=== PATIENT | female | born 1965 | race Caucasian/White ===

== ENCOUNTER → 2018-09-10 | Day surgery (SDC) | payer OTHER ==
[~2018-09-10] MED LIST: ACIDOPHILUS1 EAC1 PO; ACTOS PO; ASPIR 8181 MG PO; ATORVASTATIN CA20 MG PO; FENTANYL CITRATE/PF 100MCG/2 ML INJ ONE; GLUCAGON FOR INJ 1 MG VIAL ONE; INSULIN REGULAR, HUMAN 100 UNIT/1 ML 3ML VIAL ONE; KETAMINE HCL INJ 50 MG/ML 10 ML VIAL ONE; METFORMIN HCL500 MG PO; METOPROLOL TART25 MG PO; MIDAZOLAM HCL 5MG/ML 2ML VIAL ONE; PROPOFOL IV EMULSION 10 MG/ML 50 ML VIAL ONE; Z.0.LISINOPRIL10 MG PO
[2018-09-10 10:48] LABS: WBC,FECAL (FECAL LACTOFERRIN) NEGATIVE (NEGATIVE)
[2018-09-10 11:00] VITALS: BP 107/53
[2018-09-10 15:25] LABS: C DIFFICILE TOXIN A&B AMP PROB NEGATIVE (NEGATIVE)
--- NOTE | 2018-09-10 18:33 | Operative Report ---
DATE OF PROCEDURE: 09/10/2018 SURGEON: Chi Lora MD PROCEDURES: EGD with biopsies and colonoscopy with biopsies and polypectomy. INDICATIONS FOR EGD: Anemia. INDICATIONS FOR COLONOSCOPY: Rectal bleeding, diarrhea. MEDICATIONS: The patient was done under MAC. Please see anesthesiologist's note. PROCEDURE IN DETAIL: With the patient in left lateral decubitus position, a flexible fiberoptic Olympus gastroscope was introduced into the esophagus under direct visualization without any difficulty. Two submucosal nodules were noted in the cervical esophagus, biopsies were obtained. There was some patchy erythema noted in the distal esophagus. The scope was then advanced with ease into the stomach traversing a moderate-sized hiatal hernia. Mucosa overlying the antrum and the body revealed some patchy intense erythema and low-grade edema, and biopsies were obtained and sent to stain for H. pylori. One minute nodule was noted in the midbody of the stomach along the anterior wall and additional nodule was noted in the proximal body of the stomach along the posterior wall, biopsies were obtained. Pylorus appeared to be of normal contour and shape, was intubated with ease and the scope was advanced all the way to the second portion of the duodenum. Biopsies were obtained from the second portion and duodenal bulb to rule out sprue. The scope was then withdrawn back into the stomach and retroflexed mucosa overlying the fundus and cardia appeared to be within normal limits. The scope was then straightened out, it was subsequently withdrawn, and the patient tolerated the procedure well. IMPRESSION: 1. Submucosal nodule, cervical esophagus, biopsied. 2. Distal esophagitis, mild. 3. Moderate-sized hiatal hernia. 4. Gastritis, biopsied. Biopsies sent to stain for Helicobacter pylori. 5. Gastric nodules mid and upper body of stomach. Biopsies obtained. 6. Rule out sprue. PLAN: Follow up histology. Initiate Protonix 40 mg one p.o. q.a.m. before meals. PROCEDURE IN DETAIL: The patient was then turned around. After adequate lubrication of the anal canal, a flexible fiberoptic Olympus colonoscope was inserted into the rectum with ease and advanced all the way to the cecum. Diverticular disease was noted throughout the cecum. Of note, the visualization of the colon was suboptimal, as the patient kept coughing pretty much throughout the procedure. Whatever was visualized the mucosa overlying the cecum, ascending colon, transverse, descending as well as the sigmoid colon revealed some patchy mild inflammatory changes. Random biopsies were obtained. One minute polyp was hot biopsied from the sigmoid colon. An approximately 2.5 cm sessile mass was noted in the distal rectum and that was wedge biopsied per hot snare. The scope was then retroflexed into the distal rectum and small internal hemorrhoids were noted, none of which was actively bleeding. The scope was then straightened out, it was subsequently withdrawn after securing an adequate stool specimen that was sent for the appropriate stool studies. The patient tolerated the procedure well. IMPRESSION: 1. Pandiverticulosis. 2. Mild patchy low-grade colitis. 3. Sigmoid colon polyp, hot biopsied. 4. Rectal mass approximately 2.5 cm sessile wedge biopsied per hot polypectomy snare. 5. Internal hemorrhoids, none actively bleeding. PLAN: Follow up histology. Initiate Bentyl 10 mg one p.o. t.i.d. A general surgical consultation is in order for transanal excision of the rectal mass. The patient might benefit from a CT scan of the abdomen and pelvis, as none has been done. Follow up colonoscopy in one year. Chi Lora MD [facility] [place]/[facility] /[id number] cc: Ricky Holloway MD
--- OUTSIDE RECORDS SUMMARY | 2018-09-12 13:17 | XMS REPORT ---
Author Author [facility] Address Unknown Phone Unavailable Care Team Providers Care Repairer Welding Equipment Name Role Phone Unavailable Unavailable Payers Payer Name Policy Type Policy Number Effective Date Expiration Date Problems This patient has no known problems. Allergies, Adverse Reactions, Alerts Allergy Name Allergy Type Status Severity Reaction(s) Onset Date Inactive Date Treating Clinician Comments Penicillins DA Active U 2018-07-30 00:00:00 NO KNOWN CONTRAST MEDIA ALLERG DA Active U 2008-04-22 00:00:00 NO KNOWN OTHER ALLERGIES DA Active U 2008-04-22 00:00:00 No Known Food Allergies DA Active U 2008-04-22 00:00:00 PENICILLIN DA Active U 2008-04-22 00:00:00 penicillin G DA Active U 2000-07-20 00:00:00 Medications This patient has no known medications. Results Test Description Test Time Test Comments Text Results Atomic Results Result Comments COLON BIOPSY 2018-08-05 13:19:00 RUN DATE: 08/05/18 [place] [facility] PAGE 1 RUN TIME: 1319 Specimen Inquiry RUN USER: INTERFACE PATIENT: DEIRDRE KRUEGER LOC: [place] U #: [id number] AGE/SX: 53/F ROOM: [facility] RE07/30/18REG DR: Ricky Holloway MD : 61 BED: B DIS: 08/04/18 STATUS: DIS IN TLOC: SPEC #: [id number] RECD: 08/02/18 STATUS: GRAEME RE #: [id number] KALYAN: 08/01/[address] [facility] [address]: Ricky Holloway MD ENTERED: 08/02/18 SP TYPE: COLONBX OTHR DR: Mario Alberto Nye MD, David MD Goldsmith, William W [facility] GROSS COPIES TO: Mario Alberto Nye MD [address] [place] [address] Carlos Fernandez MD [address] [place], [place] [id number] Damien Rodriguez DO [address] [place] [address] Ricky Holloway MD [address] [place] [address] PROCEDURES: GROSS (08/03/18-1110) TISSUES: 1. ASCENDING COLON - PROXIMAL 2. RECTUM, NOS - POLYP BX CLINICAL HISTORY COLLECTION DATE: 08/01/2018 BLOOD IN STOOL FINAL DIAGNOSIS Proximal ascending colon, biopsy: CHRONIC ACTIVE COLITIS, MILD NO MICROGANISMS, CRYPT DISTORTION, GRANULOMA, DYSPLASIA OR MALIGNANCY IDENTIFIED CONTINUED ON NEXT PAGE RUN DATE: 08/05/18 [facility] PAGE 2 RUN TIME: 1319 Specimen Inquiry RUN USER: INTERFACE SPEC #: [id number] PATIENT: DEIRDRE KRUEGER #[id number] (Continued) FINAL DIAGNOSIS (Continued) Rectal polyp, biopsy: VILLOUS ADENOMA NO DEFINITE HIGH GRADE DYSPLASIA OR MALIGNANCY IDENTIFIED / D [id number] X 2 MACROSCOPIC The first specimen is received in formalin, labeled with the patient's name, identified as "proximal ascending biopsy", and consists of two richardson biopsy fragments measuring 0.35 and 0.4 cm. The second specimen is received in formalin, labeled with the patient's name, identified as "rectal polyp biopsy", and consists of richardson biopsy material measuring 0.4 cm in aggregate GROSS PERFORMED AT [facility] [address] [place] [address], [place] [address] [phone])[phone] MICROSCOPIC Sections of proximal ascending colon biopsy shows mild expansion of lamina propria by acute and chronic inflammatory cells with extension to the submucosa. There are foci of inflammatory infiltrates of surface and glandular epithelium. No crypt distortion, granuloma, microganisms, crypt abscess, dysplasia or malignancy is identified. The etiology is not apparent in the current biopsies. Recommend clinical/endoscopy correlation. Sections of rectal polyp shows villous adenoma. There is focal cytologic changes worrisome forhigh grade dysplasia. Microscopic evaluation of deeper levels shows no definite high grade dysplasia. There are intraepithelial neutrophils suggestive of reactive atypia. No malignancy is identified. All of the stains, including any controls performed, stain appropriately. MICROSCOPIC PERFORMED AT [facility] [address] [place] [address] (p)[phone] CONTINUED ON NEXT PAGE ------- RUN DATE: 08/05/18 [facility] PAGE 3 RUN TIME: 1319 Specimen Inquiry RUN USER: INTERFACE SPEC #: [id number] PATIENT: DEIRDRE KRUEGER #[id number] (Continued) ----- PERFORMING SITE Diagnosis performed at: [facility] [address] [place] [address] Signed SIGNATURE ON FILE Wm Solorio MD 08/05/18 1319 END OF REPORT GLUBED 2018-08-04 12:32:00 GLUBED (test code=GLUBED) 186 mg/dL 74-106 [facility] [id number] 05:25:00* Test Item Value Reference Range Comments GLUBED (test code=GLUBED) 124 mg/dL 74-106 Performed by certified platen press operator at [facility] BASIC METABOLIC [id number] 05:25:00* Test Item Value Reference Range Comments SODIUM (test code=NA) 144 mmol/L 136-145 POTASSIUM (test code=K) 3.2 mmol/L 3.5-5.1 CHLORIDE (test code=CL) 111.0 mmol/L 98-107 CARBON DIOXIDE (test code=CO2) 25.0 mmol/L 21-32 ANION GAP (test code=GAP) 11.2 10-20 GLUCOSE (test code=GLU) 129 mg/dL 74-106 BLOOD UREA NITROGEN (test code=BUN) 4 mg/dL 7-18 GLOMERULAR FILTRATION RATE (test code=GFR) > 60 mL/min >=60 Estimated GFR by using Modified MDRD formula.Chronic kidney disease is defined as either kidney damageor GFR <60 mL/min/1.73 m2 for >3 months. CREATININE (test code=CREAT) 0.40 mg/dL 0.55-1.02 Note change in reference range due to change in reagent. BUN/CREATININE RATIO (test code=BUN/CREA) 10.0 10-20 CALCIUM (test code=CA) 7.9 mg/dL 8.5-10.1 [id number] 05:25:00* Test Item Value Reference Range Comments PHOSPHORUS (test code=PHOS) 4.0 mg/dL 2.5-4.9 [id number] 05:25:00* Test Item Value Reference Range Comments MAGNESIUM (test code=MAG) 1.8 mg/dL 1.8-2.4 CALCIUM [id number] 05:25:00* Test Item Value Reference Range Comments CALCIUM IONIZED (test code=ERIK) 1.22 mmol/L 1.12-1.32 BASIC METABOLIC [id number] 05:23:00* Test Item Value Reference Range Comments SODIUM (test code=NA) 144 mmol/L 136-145 POTASSIUM (test code=K) 3.2 mmol/L 3.5-5.1 CHLORIDE (test code=CL) 111.0 mmol/L 98-107 CARBON DIOXIDE (test code=CO2) mmol/L 21-32 ANION GAP (test code=GAP) 10-20 GLUCOSE (test code=GLU) mg/dL 74-106 BLOOD UREA NITROGEN (test code=BUN) mg/dL 7-18 GLOMERULAR FILTRATION RATE (test code=GFR) mL/min >=60 CREATININE (test code=CREAT) mg/dL 0.55-1.02 BUN/CREATININE RATIO (test code=BUN/CREA) 10-20 CALCIUM (test code=CA) mg/dL 8.5-10.1 [id number] 05:23:00* Test Item Value Reference Range Comments PHOSPHORUS (test code=PHOS) mg/dL 2.5-4.9 [id number] 05:23:00* Test Item Value Reference Range Comments MAGNESIUM (test code=MAG) mg/dL 1.8-2.4 CALCIUM [id number] 05:23:00* Test Item Value Reference Range Comments CALCIUM IONIZED (test code=ERIK) 1.22 mmol/L 1.12-1.32 BASIC METABOLIC [id number] 05:20:00* Test Item Value Reference Range Comments SODIUM (test code=NA) 144 mmol/L 136-145 POTASSIUM (test code=K) 3.2 mmol/L 3.5-5.1 CHLORIDE (test code=CL) 111.0 mmol/L 98-107 CARBON DIOXIDE (test code=CO2) mmol/L 21-32 ANION GAP (test code=GAP) 10-20 GLUCOSE (test code=GLU) mg/dL 74-106 BLOOD UREA NITROGEN (test code=BUN) mg/dL 7-18 GLOMERULAR FILTRATION RATE (test code=GFR) mL/min >=60 CREATININE (test code=CREAT) mg/dL 0.55-1.02 BUN/CREATININE RATIO (test code=BUN/CREA) 10-20 CALCIUM (test code=CA) mg/dL 8.5-10.1 [id number] 05:20:00* Test Item Value Reference Range Comments PHOSPHORUS (test code=PHOS) mg/dL 2.5-4.9 [id number] 05:20:00* Test Item Value Reference Range Comments MAGNESIUM (test code=MAG) mg/dL 1.8-2.4 CALCIUM [id number] 05:20:00* Test Item Value Reference Range Comments CALCIUM IONIZED (test code=ERIK) mmol/L 1.12-1.32 CBC W/AUTO [id number] 05:13:00* Test Item Value Reference Range Comments WHITE BLOOD CELL (test code=WBC) 4.6 K/mm3 4.5-12.5 RED BLOOD CELL (test code=RBC) 2.73 mill/mm3 3.7-5.2 HEMOGLOBIN (test code=HGB) 8.3 gram/dL 11.5-15.5 HEMATOCRIT (test code=HCT) 26.0 % 36.0-46.0 MEAN CELL VOLUME (test code=MCV) 95.2 fL 80-98 MEAN CELL HGB (test code=MCH) 30.4 picogram 27.0-33.0 MEAN CELL HGB CONCETRATION (test code=MCHC) 31.9 gram/dL 33.0-36.0 RED CELL DISTRIBUTION WIDTH (test code=RDW) 14.6 % 11.6-16.2 RED CELL DISTRIBUTION WIDTH SD (test code=RDW-SD) 48.2 fL 37.0-51.0 PLATELET COUNT (test code=PLT) 209 K/mm3 150-450 MEAN PLATELET VOLUME (test code=MPV) 9.2 fL 6.7-11.0 NEUTROPHIL % (test code=NT%) 46.4 % 39.0-69.0 IMMATURE GRANULOCYTE % (test code=IG%) 0.7 % 0.0-5.0 LYMPHOCYTE % (test code=LY%) 43.3 % 25.0-55.0 MONOCYTE % (test code=MO%) 7.7 % 0.0-10.0 EOSINOPHIL % (test code=EO%) 1.5 % 0.0-5.0 BASOPHIL % (test code=BA%) 0.4 % 0.0-1.0 NUCLEATED RBC % (test code=NRBC%) 0.0 % 0-0 NEUTROPHIL # (test code=NT#) 2.11 K/mm3 1.8-7.7 IMMATURE GRANULOCYTE # (test code=IG#) 0.03 x10 3/uL 0-0.03 LYMPHOCYTE # (test code=LY#) 1.97 K/mm3 1.0-5.0 MONOCYTE # (test code=MO#) 0.35 K/mm3 0-0.8 EOSINOPHIL # (test code=EO#) 0.07 K/mm3 0.0-0.5 BASOPHIL # (test code=BA#) 0.02 K/mm3 0.0-0.2 NUCLEATED RBC # (test code=NRBC#) 0.00 K/mm3 0.0-0.1 MANUAL DIFF REQUIRED (test code=MDIFF) NO [id number] 22:45:00* Test Item Value Reference Range Comments GLUBED (test code=GLUBED) 191 mg/dL 74-106 Performed by certified platen press operator at [facility] HGB [id number] 19:02:00* Test Item Value Reference Range Comments HEMOGLOBIN (test code=HGB) 8.1 gram/dL 11.5-15.5 HEMATOCRIT (test code=HCT) 24.7 % 36.0-46.0 [id number] 16:40:00* Test Item Value Reference Range Comments GLUBED (test code=GLUBED) 149 mg/dL 74-106 Performed by certified platen press operator at [facility] HGB [id number] 13:57:00* Test Item Value Reference Range Comments HEMOGLOBIN (test code=HGB) 8.1 gram/dL 11.5-15.5 HEMATOCRIT (test code=HCT) 24.9 % 36.0-46.0 [id number] 11:59:00* Test Item Value Reference Range Comments GLUBED (test code=GLUBED) 142 mg/dL 74-106 Performed by certified platen press operator at [facility] BASIC METABOLIC [id number] 07:16:00* Test Item Value Reference Range Comments SODIUM (test code=NA) 143 mmol/L 136-145 POTASSIUM (test code=K) 3.4 mmol/L 3.5-5.1 CHLORIDE (test code=CL) 111.0 mmol/L 98-107 CARBON DIOXIDE (test code=CO2) 26.0 mmol/L 21-32 ANION GAP (test code=GAP) 9.4 10-20 GLUCOSE (test code=GLU) 174 mg/dL 74-106 BLOOD UREA NITROGEN (test code=BUN) 6 mg/dL 7-18 GLOMERULAR FILTRATION RATE (test code=GFR) > 60 mL/min >=60 Estimated GFR by using Modified MDRD formula.Chronic kidney disease is defined as either kidney damageor GFR <60 mL/min/1.73 m2 for >3 months. CREATININE (test code=CREAT) 0.40 mg/dL 0.55-1.02 Note change in reference range due to change in reagent. BUN/CREATININE RATIO (test code=BUN/CREA) 15.0 10-20 CALCIUM (test code=CA) 7.3 mg/dL 8.5-10.1 [id number] 07:16:00* Test Item Value Reference Range Comments PHOSPHORUS (test code=PHOS) 2.6 mg/dL 2.5-4.9 [id number] 07:16:00* Test Item Value Reference Range Comments MAGNESIUM (test code=MAG) 1.8 mg/dL 1.8-2.4 CALCIUM [id number] 07:16:00* Test Item Value Reference Range Comments CALCIUM IONIZED (test code=ERIK) 1.18 mmol/L 1.12-1.32 CBC W/AUTO [id number] 06:44:00* Test Item Value Reference Range Comments WHITE BLOOD CELL (test code=WBC) 5.9 K/mm3 4.5-12.5 RED BLOOD CELL (test code=RBC) 2.52 mill/mm3 3.7-5.2 HEMOGLOBIN (test code=HGB) 7.8 gram/dL 11.5-15.5 HEMATOCRIT (test code=HCT) 23.9 % 36.0-46.0 MEAN CELL VOLUME (test code=MCV) 94.8 fL 80-98 MEAN CELL HGB (test code=MCH) 31.0 picogram 27.0-33.0 MEAN CELL HGB CONCETRATION (test code=MCHC) 32.6 gram/dL 33.0-36.0 RED CELL DISTRIBUTION WIDTH (test code=RDW) 14.4 % 11.6-16.2 RED CELL DISTRIBUTION WIDTH SD (test code=RDW-SD) 49.1 fL 37.0-51.0 PLATELET COUNT (test code=PLT) 186 K/mm3 150-450 MEAN PLATELET VOLUME (test code=MPV) 9.4 fL 6.7-11.0 NEUTROPHIL % (test code=NT%) 51.4 % 39.0-69.0 IMMATURE GRANULOCYTE % (test code=IG%) 0.5 % 0.0-5.0 LYMPHOCYTE % (test code=LY%) 38.0 % 25.0-55.0 MONOCYTE % (test code=MO%) 8.0 % 0.0-10.0 EOSINOPHIL % (test code=EO%) 1.4 % 0.0-5.0 BASOPHIL % (test code=BA%) 0.7 % 0.0-1.0 NUCLEATED RBC % (test code=NRBC%) 0.0 % 0-0 NEUTROPHIL # (test code=NT#) 3.02 K/mm3 1.8-7.7 IMMATURE GRANULOCYTE # (test code=IG#) 0.03 x10 3/uL 0-0.03 LYMPHOCYTE # (test code=LY#) 2.23 K/mm3 1.0-5.0 MONOCYTE # (test code=MO#) 0.47 K/mm3 0-0.8 EOSINOPHIL # (test code=EO#) 0.08 K/mm3 0.0-0.5 BASOPHIL # (test code=BA#) 0.04 K/mm3 0.0-0.2 NUCLEATED RBC # (test code=NRBC#) 0.00 K/mm3 0.0-0.1 MANUAL DIFF REQUIRED (test code=MDIFF) NO BASIC METABOLIC [id number] 06:34:00* Test Item Value Reference Range Comments SODIUM (test code=NA) mmol/L 136-145 POTASSIUM (test code=K) mmol/L 3.5-5.1 CHLORIDE (test code=CL) mmol/L 98-107 CARBON DIOXIDE (test code=CO2) mmol/L 21-32 ANION GAP (test code=GAP) 10-20 GLUCOSE (test code=GLU) mg/dL 74-106 BLOOD UREA NITROGEN (test code=BUN) mg/dL 7-18 GLOMERULAR FILTRATION RATE (test code=GFR) mL/min >=60 CREATININE (test code=CREAT) mg/dL 0.55-1.02 BUN/CREATININE RATIO (test code=BUN/CREA) 10-20 CALCIUM (test code=CA) mg/dL 8.5-10.1 [id number] 06:34:00* Test Item Value Reference Range Comments PHOSPHORUS (test code=PHOS) mg/dL 2.5-4.9 [id number] 06:34:00* Test Item Value Reference Range Comments MAGNESIUM (test code=MAG) mg/dL 1.8-2.4 CALCIUM [id number] 06:34:00* Test Item Value Reference Range Comments CALCIUM IONIZED (test code=ERIK) 1.18 mmol/L 1.12-1.32 [id number] 05:11:00* Test Item Value Reference Range Comments GLUBED (test code=GLUBED) 177 mg/dL 74-106 Performed by certified platen press operator at [facility] HGB [id number] 01:27:00* Test Item Value Reference Range Comments HEMOGLOBIN (test code=HGB) 7.8 gram/dL 11.5-15.5 HEMATOCRIT (test code=HCT) 23.5 % 36.0-46.0 [id number] 01:06:00* Test Item Value Reference Range Comments GLUBED (test code=GLUBED) 162 mg/dL 74-106 Performed by certified platen press operator at [facility] [id number] 21:15:00* Test Item Value Reference Range Comments GLUBED (test code=GLUBED) 164 mg/dL 74-106 Performed by certified platen press operator at [facility] HGB [id number] 17:59:00* Test Item Value Reference Range Comments HEMOGLOBIN (test code=HGB) 8.0 gram/dL 11.5-15.5 HEMATOCRIT (test code=HCT) 24.1 % 36.0-46.0 [id number] 17:17:00* Test Item Value Reference Range Comments GLUBED (test code=GLUBED) 186 mg/dL 74-106 [facility]formed by certified platen press operator [facility] [id number] 16:20:00* Test Item Value Reference Range Comments GLUBED (test code=GLUBED) 191 mg/dL 74-106 Performed by certified platen press operator [facility] BASIC METABOLIC [id number] 06:42:00* Test Item Value Reference Range Comments SODIUM (test code=NA) 144 mmol/L 136-145 POTASSIUM (test code=K) 3.5 mmol/L 3.5-5.1 CHLORIDE (test code=CL) 112.0 mmol/L 98-107 CARBON DIOXIDE (test code=CO2) 27.0 mmol/L 21-32 ANION GAP (test code=GAP) 8.5 10-20 GLUCOSE (test code=GLU) 126 mg/dL 74-106 BLOOD UREA NITROGEN (test code=BUN) 7 mg/dL 7-18 GLOMERULAR FILTRATION RATE (test code=GFR) > 60 mL/min >=60 Estimated GFR by using Modified MDRD formula.Chronic kidney disease is defined as either kidney damageor GFR <60 mL/min/1.73 m2 for >3 months. CREATININE (test code=CREAT) 0.40 mg/dL 0.55-1.02 Note change in reference range due to change in reagent. BUN/CREATININE RATIO (test code=BUN/CREA) 17.5 10-20 CALCIUM (test code=CA) 6.6 mg/dL 8.5-10.1 [id number] 06:42:00* Test Item Value Reference Range Comments PHOSPHORUS (test code=PHOS) 2.3 mg/dL 2.5-4.9 [id number] 06:42:00* Test Item Value Reference Range Comments MAGNESIUM (test code=MAG) 1.9 mg/dL 1.8-2.4 CALCIUM [id number] 06:42:00* Test Item Value Reference Range Comments CALCIUM IONIZED (test code=ERIK) 1.10 mmol/L 1.12-1.32 BASIC METABOLIC [id number] 06:34:00* Test Item Value Reference Range Comments SODIUM (test code=NA) 144 mmol/L 136-145 POTASSIUM (test code=K) 3.5 mmol/L 3.5-5.1 CHLORIDE (test code=CL) 112.0 mmol/L 98-107 CARBON DIOXIDE (test code=CO2) mmol/L 21-32 ANION GAP (test code=GAP) 10-20 GLUCOSE (test code=GLU) mg/dL 74-106 BLOOD UREA NITROGEN (test code=BUN) mg/dL 7-18 GLOMERULAR FILTRATION RATE (test code=GFR) mL/min >=60 CREATININE (test code=CREAT) mg/dL 0.55-1.02 BUN/CREATININE RATIO (test code=BUN/CREA) 10-20 CALCIUM (test code=CA) mg/dL 8.5-10.1 [id number] 06:34:00* Test Item Value Reference Range Comments PHOSPHORUS (test code=PHOS) mg/dL 2.5-4.9 [id number] 06:34:00* Test Item Value Reference Range Comments MAGNESIUM (test code=MAG) mg/dL 1.8-2.4 CALCIUM [id number] 06:34:00* Test Item Value Reference Range Comments CALCIUM IONIZED (test code=ERIK) 1.10 mmol/L 1.12-1.32 BASIC METABOLIC [id number] 06:30:00* Test Item Value Reference Range Comments SODIUM (test code=NA) mmol/L 136-145 POTASSIUM (test code=K) mmol/L 3.5-5.1 CHLORIDE (test code=CL) mmol/L 98-107 CARBON DIOXIDE (test code=CO2) mmol/L 21-32 ANION GAP (test code=GAP) 10-20 GLUCOSE (test code=GLU) mg/dL 74-106 BLOOD UREA NITROGEN (test code=BUN) mg/dL 7-18 GLOMERULAR FILTRATION RATE (test code=GFR) mL/min >=60 CREATININE (test code=CREAT) mg/dL 0.55-1.02 BUN/CREATININE RATIO (test code=BUN/CREA) 10-20 CALCIUM (test code=CA) mg/dL 8.5-10.1 [id number] 06:30:00* Test Item Value Reference Range Comments PHOSPHORUS (test code=PHOS) mg/dL 2.5-4.9 [id number] 06:30:00* Test Item Value Reference Range Comments MAGNESIUM (test code=MAG) mg/dL 1.8-2.4 CALCIUM [id number] 06:30:00* Test Item Value Reference Range Comments CALCIUM IONIZED (test code=ERIK) 1.10 mmol/L 1.12-1.32 CBC W/AUTO [id number] 06:27:00* Test Item Value Reference Range Comments WHITE BLOOD CELL (test code=WBC) 7.3 K/mm3 4.5-12.5 RED BLOOD CELL (test code=RBC) 2.47 mill/mm3 3.7-5.2 HEMOGLOBIN (test code=HGB) 7.8 gram/dL 11.5-15.5 HEMATOCRIT (test code=HCT) 23.1 % 36.0-46.0 MEAN CELL VOLUME (test code=MCV) 93.5 fL 80-98 MEAN CELL HGB (test code=MCH) 31.6 picogram 27.0-33.0 MEAN CELL HGB CONCETRATION (test code=MCHC) 33.8 gram/dL 33.0-36.0 RED CELL DISTRIBUTION WIDTH (test code=RDW) 14.6 % 11.6-16.2 RED CELL DISTRIBUTION WIDTH SD (test code=RDW-SD) 49.5 fL 37.0-51.0 PLATELET COUNT (test code=PLT) 179 K/mm3 150-450 MEAN PLATELET VOLUME (test code=MPV) 9.3 fL 6.7-11.0 NEUTROPHIL % (test code=NT%) 49.4 % 39.0-69.0 IMMATURE GRANULOCYTE % (test code=IG%) 0.7 % 0.0-5.0 LYMPHOCYTE % (test code=LY%) 39.0 % 25.0-55.0 MONOCYTE % (test code=MO%) 8.4 % 0.0-10.0 EOSINOPHIL % (test code=EO%) 1.8 % 0.0-5.0 BASOPHIL % (test code=BA%) 0.7 % 0.0-1.0 NUCLEATED RBC % (test code=NRBC%) 0.0 % 0-0 NEUTROPHIL # (test code=NT#) 3.59 K/mm3 1.8-7.7 IMMATURE GRANULOCYTE # (test code=IG#) 0.05 x10 3/uL 0-0.03 LYMPHOCYTE # (test code=LY#) 2.83 K/mm3 1.0-5.0 MONOCYTE # (test code=MO#) 0.61 K/mm3 0-0.8 EOSINOPHIL # (test code=EO#) 0.13 K/mm3 0.0-0.5 BASOPHIL # (test code=BA#) 0.05 K/mm3 0.0-0.2 NUCLEATED RBC # (test code=NRBC#) 0.00 K/mm3 0.0-0.1 MANUAL DIFF REQUIRED (test code=MDIFF) NO [id number] 06:05:00* Test Item Value Reference Range Comments GLUBED (test code=GLUBED) 127 mg/dL 74-106 Performed by certified platen press operator at [facility] [id number] 00:21:00* Test Item Value Reference Range Comments GLUBED (test code=GLUBED) 236 mg/dL 74-106 Performed by certified platen press operator at [facility] HGB [id number] 21:58:00* Test Item Value Reference Range Comments HEMOGLOBIN (test code=HGB) 8.0 gram/dL 11.5-15.5 RESULT VERIFIED BY REPEAT ANALYSIS HEMATOCRIT (test code=HCT) 24.6 % 36.0-46.0 [id number] 18:03:00* Test Item Value Reference Range Comments GLUBED (test code=GLUBED) 189 mg/dL 74-106 [facility] CBC W/AUTO [id number] 13:27:00* Test Item Value Reference Range Comments WHITE BLOOD CELL (test code=WBC) 9.6 K/mm3 4.5-12.5 RED BLOOD CELL (test code=RBC) 1.90 mill/mm3 3.7-5.2 HEMOGLOBIN (test code=HGB) 5.9 gram/dL 11.5-15.5 HEMATOCRIT (test code=HCT) 17.9 % 36.0-46.0 RESULT VERIFIED BY REPEAT ANALYSISCritical results verified and read back by Nurse? Y MEAN CELL VOLUME (test code=MCV) 94.2 fL 80-98 MEAN CELL HGB (test code=MCH) 31.1 picogram 27.0-33.0 MEAN CELL HGB CONCETRATION (test code=MCHC) 33.0 gram/dL 33.0-36.0 RED CELL DISTRIBUTION WIDTH (test code=RDW) 15.5 % 11.6-16.2 RED CELL DISTRIBUTION WIDTH SD (test code=RDW-SD) 51.7 fL 37.0-51.0 PLATELET COUNT (test code=PLT) 220 K/mm3 150-450 MEAN PLATELET VOLUME (test code=MPV) 9.6 fL 6.7-11.0 NEUTROPHIL % (test code=NT%) 58.1 % 39.0-69.0 IMMATURE GRANULOCYTE % (test code=IG%) 0.6 % 0.0-5.0 LYMPHOCYTE % (test code=LY%) 34.3 % 25.0-55.0 MONOCYTE % (test code=MO%) 5.3 % 0.0-10.0 EOSINOPHIL % (test code=EO%) 1.3 % 0.0-5.0 BASOPHIL % (test code=BA%) 0.4 % 0.0-1.0 NUCLEATED RBC % (test code=NRBC%) 0.0 % 0-0 NEUTROPHIL # (test code=NT#) 5.54 K/mm3 1.8-7.7 IMMATURE GRANULOCYTE # (test code=IG#) 0.06 x10 3/uL 0-0.03 LYMPHOCYTE # (test code=LY#) 3.28 K/mm3 1.0-5.0 MONOCYTE # (test code=MO#) 0.51 K/mm3 0-0.8 EOSINOPHIL # (test code=EO#) 0.12 K/mm3 0.0-0.5 BASOPHIL # (test code=BA#) 0.04 K/mm3 0.0-0.2 NUCLEATED RBC # (test code=NRBC#) 0.00 K/mm3 0.0-0.1 MANUAL DIFF REQUIRED (test code=MDIFF) NO - XR CHEST 1 [id number] 13:18:00 FAX: Deirdre Taylor MD [place]: St: [facility] FAX: Y Ricky Holloway MD [phone] Name: DEIRDRE KRUEGER HARINDER [facility] : 1965 Age/S: 53/F [address] [facility] Unit #: [id number] Loc: [address] [address] Phys: Deirdre Taylor MD Acct: [id number] Dis Date: Status: ADM IN PHONE #: [phone] Exam Date: 08/01/2018 1253 FAX #: [phone] Reason: r/o pulmonary edema EXAMS: CPT CODE: [id number] XR CHEST 1 V 69716 HISTORY: Pulmonary edema. COMPARISON: July 30, 2018. No acute infiltrates, effusion or congestion is noted. Cardiomegaly. IMPRESSION: No acute infiltrates, effusion or congestion. at 1318 Reported and signed by: Khurram Rodriguez M.D. CC: Deirdre Taylor MD; Ricky Holloway MD Technologist: NELSON MIR JR Trnscrd Date/Time/By: 08/01/2018 (6367) : By: [email or web address] Orig Print D/T: S: 08/01/2018 (5623) PAGE 1 Signed Report COMPREHENSIVE METABOLIC [id number] 13:12:00* Test Item Value Reference Range Comments SODIUM (test code=NA) 144 mmol/L 136-145 POTASSIUM (test code=K) 4.1 mmol/L 3.5-5.1 CHLORIDE (test code=CL) 112.0 mmol/L 98-107 CARBON DIOXIDE (test code=CO2) 27.0 mmol/L 21-32 ANION GAP (test code=GAP) 9.1 10-20 GLUCOSE (test code=GLU) 217 mg/dL 74-106 BLOOD UREA NITROGEN (test code=BUN) 12 mg/dL 7-18 GLOMERULAR FILTRATION RATE (test code=GFR) > 60 mL/min >=60 Estimated GFR by using Modified MDRD formula.Chronic kidney disease is defined as either kidney damageor GFR <60 mL/min/1.73 m2 for >3 months. CREATININE (test code=CREAT) 0.40 mg/dL 0.55-1.02 Note change in reference range due to change in reagent. BUN/CREATININE RATIO (test code=BUN/CREA) 30.0 10-20 TOTAL PROTEIN (test code=PROT) 4.1 gram/dL 6.4-8.2 ALBUMIN (test code=ALB) 2.3 g/dL 3.4-5.0 GLOBULIN (test code=GLOB) 1.8 gram/dL 2.7-4.2 ALBUMIN/GLOBULIN RATIO (test code=A/G) 1.3 0.75-1.50 CALCIUM (test code=CA) 6.7 mg/dL 8.5-10.1 BILIRUBIN TOTAL (test code=BILT) 0.20 mg/dL 0.0-1.0 SGOT/AST (test code=AST) 19 IUnit/L 15-37 SGPT/ALT (test code=ALT) 23 IUnit/L 12-78 ALKALINE PHOSPHATASE TOTAL (test code=ALKP) 68 IUnit/L 45-117 Note change in reference range due to change in reagent. COMPREHENSIVE METABOLIC [id number] 13:06:00* Test Item Value Reference Range Comments SODIUM (test code=NA) 144 mmol/L 136-145 POTASSIUM (test code=K) 4.1 mmol/L 3.5-5.1 CHLORIDE (test code=CL) 112.0 mmol/L 98-107 CARBON DIOXIDE (test code=CO2) mmol/L 21-32 ANION GAP (test code=GAP) 10-20 GLUCOSE (test code=GLU) mg/dL 74-106 BLOOD UREA NITROGEN (test code=BUN) mg/dL 7-18 GLOMERULAR FILTRATION RATE (test code=GFR) mL/min >=60 CREATININE (test code=CREAT) mg/dL 0.55-1.02 BUN/CREATININE RATIO (test code=BUN/CREA) 10-20 TOTAL PROTEIN (test code=PROT) gram/dL 6.4-8.2 ALBUMIN (test code=ALB) g/dL 3.4-5.0 GLOBULIN (test code=GLOB) gram/dL 2.7-4.2 ALBUMIN/GLOBULIN RATIO (test code=A/G) 0.75-1.50 CALCIUM (test code=CA) mg/dL 8.5-10.1 BILIRUBIN TOTAL (test code=BILT) mg/dL 0.0-1.0 SGOT/AST (test code=AST) IUnit/L 15-37 SGPT/ALT (test code=ALT) IUnit/L 12-78 ALKALINE PHOSPHATASE TOTAL (test code=ALKP) IUnit/L 45-117 [id number] 11:10:00* Test Item Value Reference Range Comments GLUBED (test code=GLUBED) 215 mg/dL 74-106 [facility] [id number] 07:05:00* Test Item Value Reference Range Comments GLUBED (test code=GLUBED) 218 mg/dL 74-106 Performed by certified platen press operator at [facility] [id number] 00:23:00* Test Item Value Reference Range Comments GLUBED (test code=GLUBED) 239 mg/dL 74-106 Performed by certified platen press operator at [facility] [id number] 17:06:00* Test Item Value Reference Range Comments GLUBED (test code=GLUBED) 269 mg/dL 74-106 Performed by certified platen press operator at [facility] HGB [id number] 11:41:00* Test Item Value Reference Range Comments HEMOGLOBIN (test code=HGB) 9.8 gram/dL 11.5-15.5 HEMATOCRIT (test code=HCT) 29.7 % 36.0-46.0 [id number] 11:23:00* Test Item Value Reference Range Comments GLUBED (test code=GLUBED) 221 mg/dL 74-106 Performed by certified platen press operator at [facility] BASIC METABOLIC [id number] 06:15:00* Test Item Value Reference Range Comments SODIUM (test code=NA) 140 mmol/L 136-145 POTASSIUM (test code=K) 5.0 mmol/L 3.5-5.1 CHLORIDE (test code=CL) 112.0 mmol/L 98-107 CARBON DIOXIDE (test code=CO2) 22.0 mmol/L 21-32 ANION GAP (test code=GAP) 11.0 10-20 GLUCOSE (test code=GLU) 361 mg/dL 74-106 BLOOD UREA NITROGEN (test code=BUN) 20 mg/dL 7-18 GLOMERULAR FILTRATION RATE (test code=GFR) > 60 mL/min >=60 Estimated GFR by using Modified MDRD formula.Chronic kidney disease is defined as either kidney damageor GFR <60 mL/min/1.73 m2 for >3 months. CREATININE (test code=CREAT) 0.80 mg/dL 0.55-1.02 Note change in reference range due to change in reagent. BUN/CREATININE RATIO (test code=BUN/CREA) 25.0 10-20 CALCIUM (test code=CA) 7.3 mg/dL 8.5-10.1 [id number] 06:15:00* Test Item Value Reference Range Comments PHOSPHORUS (test code=PHOS) 4.4 mg/dL 2.5-4.9 [id number] 06:15:00* Test Item Value Reference Range Comments MAGNESIUM (test code=MAG) 1.6 mg/dL 1.8-2.4 CALCIUM [id number] 06:15:00* Test Item Value Reference Range Comments CALCIUM IONIZED (test code=ERIK) 1.18 mmol/L 1.12-1.32 BASIC METABOLIC [id number] 06:10:00* Test Item Value Reference Range Comments SODIUM (test code=NA) 140 mmol/L 136-145 POTASSIUM (test code=K) 5.0 mmol/L 3.5-5.1 CHLORIDE (test code=CL) 112.0 mmol/L 98-107 CARBON DIOXIDE (test code=CO2) mmol/L 21-32 ANION GAP (test code=GAP) 10-20 GLUCOSE (test code=GLU) mg/dL 74-106 BLOOD UREA NITROGEN (test code=BUN) mg/dL 7-18 GLOMERULAR FILTRATION RATE (test code=GFR) mL/min >=60 CREATININE (test code=CREAT) mg/dL 0.55-1.02 BUN/CREATININE RATIO (test code=BUN/CREA) 10-20 CALCIUM (test code=CA) mg/dL 8.5-10.1 [id number] 06:10:00* Test Item Value Reference Range Comments PHOSPHORUS (test code=PHOS) mg/dL 2.5-4.9 [id number] 06:10:00* Test Item Value Reference Range Comments MAGNESIUM (test code=MAG) mg/dL 1.8-2.4 CALCIUM [id number] 06:10:00* Test Item Value Reference Range Comments CALCIUM IONIZED (test code=ERIK) 1.18 mmol/L 1.12-1.32 BASIC METABOLIC [id number] 06:08:00* Test Item Value Reference Range Comments SODIUM (test code=NA) mmol/L 136-145 POTASSIUM (test code=K) mmol/L 3.5-5.1 CHLORIDE (test code=CL) mmol/L 98-107 CARBON DIOXIDE (test code=CO2) mmol/L 21-32 ANION GAP (test code=GAP) 10-20 GLUCOSE (test code=GLU) mg/dL 74-106 BLOOD UREA NITROGEN (test code=BUN) mg/dL 7-18 GLOMERULAR FILTRATION RATE (test code=GFR) mL/min >=60 CREATININE (test code=CREAT) mg/dL 0.55-1.02 BUN/CREATININE RATIO (test code=BUN/CREA) 10-20 CALCIUM (test code=CA) mg/dL 8.5-10.1 [id number] 06:08:00* Test Item Value Reference Range Comments PHOSPHORUS (test code=PHOS) mg/dL 2.5-4.9 [id number] 06:08:00* Test Item Value Reference Range Comments MAGNESIUM (test code=MAG) mg/dL 1.8-2.4 CALCIUM [id number] 06:08:00* Test Item Value Reference Range Comments CALCIUM IONIZED (test code=ERIK) 1.18 mmol/L 1.12-1.32 CBC W/AUTO [id number] 05:32:00* Test Item Value Reference Range Comments WHITE BLOOD CELL (test code=WBC) 16.0 K/mm3 4.5-12.5 RED BLOOD CELL (test code=RBC) 3.13 mill/mm3 3.7-5.2 HEMOGLOBIN (test code=HGB) 9.1 gram/dL 11.5-15.5 HEMATOCRIT (test code=HCT) 30.3 % 36.0-46.0 MEAN CELL VOLUME (test code=MCV) 96.8 fL 80-98 MEAN CELL HGB (test code=MCH) 29.1 picogram 27.0-33.0 MEAN CELL HGB CONCETRATION (test code=MCHC) 30.0 gram/dL 33.0-36.0 RED CELL DISTRIBUTION WIDTH (test code=RDW) 13.7 % 11.6-16.2 RED CELL DISTRIBUTION WIDTH SD (test code=RDW-SD) 48.2 fL 37.0-51.0 PLATELET COUNT (test code=PLT) 322 K/mm3 150-450 RESULT VERIFIED BY REPEAT ANALYSIS MEAN PLATELET VOLUME (test code=MPV) 9.8 fL 6.7-11.0 NEUTROPHIL % (test code=NT%) 83.7 % 39.0-69.0 IMMATURE GRANULOCYTE % (test code=IG%) 1.2 % 0.0-5.0 LYMPHOCYTE % (test code=LY%) 12.5 % 25.0-55.0 MONOCYTE % (test code=MO%) 2.4 % 0.0-10.0 EOSINOPHIL % (test code=EO%) 0.0 % 0.0-5.0 BASOPHIL % (test code=BA%) 0.2 % 0.0-1.0 NUCLEATED RBC % (test code=NRBC%) 0.0 % 0-0 NEUTROPHIL # (test code=NT#) 13.42 K/mm3 1.8-7.7 IMMATURE GRANULOCYTE # (test code=IG#) 0.19 x10 3/uL 0-0.03 LYMPHOCYTE # (test code=LY#) 2.00 K/mm3 1.0-5.0 MONOCYTE # (test code=MO#) 0.38 K/mm3 0-0.8 EOSINOPHIL # (test code=EO#) 0.00 K/mm3 0.0-0.5 BASOPHIL # (test code=BA#) 0.04 K/mm3 0.0-0.2 NUCLEATED RBC # (test code=NRBC#) 0.00 K/mm3 0.0-0.1 [id number] 05:04:00* Test Item Value Reference Range Comments GLUBED (test code=GLUBED) 359 mg/dL 74-106 Performed by certified platen press operator at [facility] [id number] 05:04:00* Test Item Value Reference Range Comments GLUBED (test code=GLUBED) 339 mg/dL 74-106 Performed by certified platen press operator at [facility] HGB [id number] 00:49:00* Test Item Value Reference Range Comments HEMOGLOBIN (test code=HGB) 9.4 gram/dL 11.5-15.5 RESULT VERIFIED BY REPEAT ANALYSIS HEMATOCRIT (test code=HCT) 29.7 % 36.0-46.0 - CT ABD PELVIS [id number] 00:00:00 Name: DEIRDRE KRUEGER [facility] : 1965 Age/S: 53 / F [address] [facility] Unit #: [id number] Loc: [place] [address] Phys: Hollie Means MD Acct: [id number] Dis Date: Status: ADM IN PHONE #: [phone] Exam Date: 07/30/2018 2330 FAX #: [phone] Reason: abd pain and gi bleed EXAMS: CPT CODE: [id number] CT ABD PELVIS W/CONT 82347 CT abdomen and pelvis with IV contrast. Indication: GI bleed Location: R16 Comparison: None Technique: CT images of the abdomen and pelvis were obtained from the diaphragm to the pubic symphysis after the administration of intravenous contrast contrast. Coronal reformats are provided. One or more of the following dose reduction techniques were used: Automated exposure control, adjustment of the mA and/or kV according to patient size, and/or utilization of iterative reconstruction technique. Findings: Lungs bases: Unremarkable. Upper GI: Mild thickening of the GE junction. Liver: Unremarkable. Gallbladder: Surgically absent Pancreas: Unremarkable. Spleen: Unremarkable. Adrenal glands: Nonspecific thickening of the left adrenal gland is seen Kidneys: Unremarkable with the exception of parapelvic cysts. Bowel: No bowel obstruction. The appendix is unremarkable. Focal hyperdensities seen within the mid transverse colon becomes slightly more diffuse and layering on the delayed image concerning for acute hemorrhage. Diverticulosis is seen throughout. Peritoneum: No ascites. No free air Skeletal: No acute fracture.. Impression: Focal hyperdensities seen within the mid transverse colon becomes slightly more diffuse and layering on the delayed image concerning for acute hemorrhage. Additional findings as above PAGE 1 Signed Report (CONTINUED) Name: DEIRDRE KRUEGER [facility] : 1965 Age/S: 53 / F [address] [facility]: [id number] Loc: [place] [address] Phys: Hollie Means MD Acct: [id number] Dis Date: Status: ADM IN PHONE #: [phone] Exam Date: 07/30/2018 2330 FAX #: [phone] Reason: abd pain and gi bleed EXAMS: CPT CODE: [id number] CT ABD PELVIS W/CONT 97098 <Continued> at 0000 Reported and signed by: Ekaterina Figueroa M.D. CC: Technologist:RT Faisal(R)(CT) CTDI: DLP: Trnscb Date/Time: 07/31/2018 (0000) [email or web address] Orig Print D/T: S: 07/31/2018 (0003) CTDI: DLP: PAGE 2 Signed Report URINALYSIS COMPLETE 2018-07-30 23:33:00* Test Item Value Reference Range Comments UA COLOR (test code=COLU) Light-Dickens YELLOW UA APPEARANCE (test code=APPU) Cloudy CLEAR UA GLUCOSE DIPSTICK (test code=DGLUU) >1000 (4+) mg/dL NEGATIVE UA BILIRUBIN DIPSTICK (test code=BILU) NEGATIVE mg/dL NEGATIVE UA KETONE DIPSTICK (test code=KETU) NEGATIVE mg/dL NEGATIVE UA SPECIFIC GRAVITY (test code=SGU) 1.021 1.001-1.035 UA BLOOD DIPSTICK (test code=CHANTEL) >1.0 mg/dL NEGATIVE UA PH DIPSTICK (test code=RONI) 5.5 5.0-8.0 UA PROTEIN DIPSTICK (test code=PROU) 30 (1+) mg/dL NEGATIVE UA UROBILINIOGEN DIPSTICK (test code=URO) Normal mg/dL NEGATIVE UA NITRITE DIPSTICK (test code=VASILIY) NEGATIVE NEGATIVE UA LEUKOCYTE ESTERASE W REFLEX (test code=LEUUR) NEGATIVE Bob/uL NEGATIVE UA WBC (test code=WBCU) 0-5 per HPF 0-5 UA RBC (test code=RBCU) >200 #/HPF 0-5 UA EPITHELIAL CELLS (test code=EPIU) MOD per HPF FEW UA BACTERIA (test code=BACU) FEW #/HPF NONE UA MUCUS (test code=MUCU) FEW #/LPF FEW Urine Source? Clean CatchB-TYPE NATRIURETIC [id number] 23:25:00* Test Item Value Reference Range Comments B-TYPE NATRIURETIC PEPTIDE (test code=BNP) 7.66 pgram/mL 0-100 BASIC METABOLIC [id number] 22:27:00* Test Item Value Reference Range Comments SODIUM (test code=NA) 136 mmol/L 136-145 POTASSIUM (test code=K) 4.6 mmol/L 3.5-5.1 CHLORIDE (test code=CL) 104.0 mmol/L 98-107 CARBON DIOXIDE (test code=CO2) 23.0 mmol/L 21-32 ANION GAP (test code=GAP) 13.6 10-20 GLUCOSE (test code=GLU) 332 mg/dL 74-106 BLOOD UREA NITROGEN (test code=BUN) 22 mg/dL 7-18 GLOMERULAR FILTRATION RATE (test code=GFR) 52 mL/min >=60 Estimated GFR by using Modified MDRD formula.Chronic kidney disease is defined as either kidney damageor GFR <60 mL/min/1.73 m2 for >3 months. CREATININE (test code=CREAT) 1.10 mg/dL 0.55-1.02 Note change in reference range due to change in reagent. BUN/CREATININE RATIO (test code=BUN/CREA) 20.0 10-20 CALCIUM (test code=CA) 8.6 mg/dL 8.5-10.1 HEPATIC FUNCTION [id number] 22:27:00* Test Item Value Reference Range Comments TOTAL PROTEIN (test code=PROT) 6.8 gram/dL 6.4-8.2 ALBUMIN (test code=ALB) 3.3 g/dL 3.4-5.0 GLOBULIN (test code=GLOB) 3.5 gram/dL 2.7-4.2 ALBUMIN/GLOBULIN RATIO (test code=A/G) 0.9 0.75-1.50 BILIRUBIN TOTAL (test code=BILT) 0.20 mg/dL 0.0-1.0 BILIRUBIN DIRECT (test code=BILD) 0.07 mg/dL 0.0-0.20 SGOT/AST (test code=AST) 11 IUnit/L 15-37 SGPT/ALT (test code=ALT) 31 IUnit/L 12-78 ALKALINE PHOSPHATASE TOTAL (test code=ALKP) 108 IUnit/L 45-117 Note change in reference range due to change in reagent. [id number] 22:27:00* Test Item Value Reference Range Comments LIPASE (test code=LIP) 161 U/L 73.0-393.0 [id number] 22:27:00* Test Item Value Reference Range Comments TROPONIN-I (test code=TROPI) <0.015 ng/mL 0-0.045 PROTHROMBIN [id number] 22:26:00* Test Item Value Reference Range Comments PROTHROMBIN TIME PATIENT (test code=PTP) 10.8 seconds 9.0-14.0 INTERNATIONAL NORMAL RATIO (test code=INR) 0.9 0.8-1.2 The therapeutic range for oral anticoagulant therapy formost indications is an international normalized ratio (INR)of between 2.0 and 3.0. The recommended therapeutic INRrange for various clinical situations is listed below: Clinical Situation INR range Pulmonary e mbolism treatment (2.0-3.0)Venous thrombosis treatmentVenous thrombosis prophylaxis (high risk surgery)Prevention of systemic embolism from: Acute myocardial infarction Valvular heart disease Atrial fibrillation Mechanical prosthetic heart valves (2.5-3.5) IS PATIENT ON ANTICOAGULANTS? NTHROMBOPLASTIN TIME [id number] 22:26:00* Test Item Value Reference Range Comments THROMBOPLASTIN TIME PARTIAL (test code=PTT) 32.9 seconds 25.0-36.5 IS PATIENT ON ANTICOAGULANTS? N- XR CHEST 1 [id number] 22:24:00 [place]: St: REG Name: DEIRDRE ALEXANDER [facility] : [birth year] Age/S: 53/F [address] [facility] Unit #: [id number] Loc: [place] [address] Phys: Hollie Means MD Acct: [id number] Dis Date: Status: REG ER PHONE #: [phone] Exam Date: 07/30/20182220 FAX #: [phone] Reason: CHEST PAIN EXAMS: CPT CODE: [id number] XR CHEST 1 V 28752 HISTORY: CHEST PAIN TECHNIQUE: AP chest x-ray COMPARISON: 04/22/08 FINDIN GS: No airspace consolidation or pleural effusion. Normal heart si ze. Atherosclerotic vascular calcification of the thoracic aorta. Vi sualized osseous structures are grossly intact. IMPRESSION: No radiographic evidence of acute cardiopulmonary process. at 2222 Reported and signed by: Belén Tirado D.O. CC: Technologist: Gin Alvarez Trnscrd Date/Time/By: 07/30/2018 (2752) : By: [email or web address] Orig Print D/T: S: 07/30/2018 (6209) PAGE 1 Signed Report BASIC METABOLIC [id number] 22:16:00* Test Item Value Reference Range Comments SODIUM (test code=NA) 136 mmol/L 136-145 POTASSIUM (test code=K) 4.6 mmol/L 3.5-5.1 CHLORIDE (test code=CL) 104.0 mmol/L 98-107 CARBON DIOXIDE (test code=CO2) mmol/L 21-32 ANION GAP (test code=GAP) 10-20 GLUCOSE (test code=GLU) mg/dL 74-106 BLOOD UREA NITROGEN (test code=BUN) mg/dL 7-18 GLOMERULAR FILTRATION RATE (test code=GFR) mL/min >=60 CREATININE (test code=CREAT) mg/dL 0.55-1.02 BUN/CREATININE RATIO (test code=BUN/CREA) 10-20 CALCIUM (test code=CA) mg/dL 8.5-10.1 HEPATIC FUNCTION [id number] 22:16:00* Test Item Value Reference Range Comments TOTAL PROTEIN (test code=PROT) gram/dL 6.4-8.2 ALBUMIN (test code=ALB) g/dL 3.4-5.0 GLOBULIN (test code=GLOB) gram/dL 2.7-4.2 ALBUMIN/GLOBULIN RATIO (test code=A/G) 0.75-1.50 BILIRUBIN TOTAL (test code=BILT) mg/dL 0.0-1.0 BILIRUBIN DIRECT (test code=BILD) mg/dL 0.0-0.20 SGOT/AST (test code=AST) IUnit/L 15-37 SGPT/ALT (test code=ALT) IUnit/L 12-78 ALKALINE PHOSPHATASE TOTAL (test code=ALKP) IUnit/L 45-117 [id number] 22:16:00* Test Item Value Reference Range Comments LIPASE (test code=LIP) U/L 73.0-393.0 [id number] 22:16:00* Test Item Value Reference Range Comments TROPONIN-I (test code=TROPI) ng/mL 0-0.045 CBC W/O [id number] 22:09:00* Test Item Value Reference Range Comments WHITE BLOOD CELL (test code=WBC) 13.1 K/mm3 4.5-12.5 RED BLOOD CELL (test code=RBC) 4.05 mill/mm3 3.7-5.2 HEMOGLOBIN (test code=HGB) 12.4 gram/dL 11.5-15.5 HEMATOCRIT (test code=HCT) 37.7 % 36.0-46.0 MEAN CELL VOLUME (test code=MCV) 93.1 fL 80-98 MEAN CELL HGB (test code=MCH) 30.6 picogram 27.0-33.0 MEAN CELL HGB CONCETRATION (test code=MCHC) 32.9 gram/dL 33.0-36.0 RED CELL DISTRIBUTION WIDTH (test code=RDW) 13.4 % 11.6-16.2 PLATELET COUNT (test code=PLT) 382 K/mm3 150-450 MEAN PLATELET VOLUME (test code=MPV) 9.4 fL 6.7-11.0 CBC W/O [id number] 22:08:00* Test Item Value Reference Range Comments WHITE BLOOD CELL (test code=WBC) K/mm3 4.5-12.5 RED BLOOD CELL (test code=RBC) mill/mm3 3.7-5.2 HEMOGLOBIN (test code=HGB) 12.4 gram/dL 11.5-15.5 HEMATOCRIT (test code=HCT) 37.7 % 36.0-46.0 MEAN CELL VOLUME (test code=MCV) fL 80-98 MEAN CELL HGB (test code=MCH) picogram 27.0-33.0 MEAN CELL HGB CONCETRATION (test code=MCHC) gram/dL 33.0-36.0 RED CELL DISTRIBUTION WIDTH (test code=RDW) % 11.6-16.2 PLATELET COUNT (test code=PLT) K/mm3 150-450 MEAN PLATELET VOLUME (test code=MPV) fL 6.7-11.0
== END | disposition home or self-care (01) ==
LOC: OR 06:06
PROVIDERS: ATTEND Internal Medicine Gastroenterology
DX: D64.9 Anemia, unspecified (principal); K21.0 Gastro-esophageal reflux disease with esophagitis; K31.9 Disease of stomach and duodenum, unspecified; D12.8 Benign neoplasm of rectum; K63.5 Polyp of colon; K92.2 Gastrointestinal hemorrhage, unspecified; K44.9 Diaphragmatic hernia without obstruction or gangrene; K29.50 Unspecified chronic gastritis without bleeding; K57.30 Diverticulosis of large intestine without perforation or abscess without bleeding; K52.9 Noninfective gastroenteritis and colitis, unspecified; K64.8 Other hemorrhoids; I10 Essential (primary) hypertension; E11.9 Type 2 diabetes mellitus without complications; Z79.84 Long term (current) use of oral hypoglycemic drugs; J44.9 Chronic obstructive pulmonary disease, unspecified; F17.210 Nicotine dependence, cigarettes, uncomplicated; I73.9 Peripheral vascular disease, unspecified
CPT/HCPCS: 36415; 43239; 45380; 45384; 45385; 82948; 83630; 83993; 87045; 87177; 87328; 87493; J1610; J2250; J2704

== ENCOUNTER → 2018-10-18 | Outpatient (CLI) | payer OTHER ==
[~2018-10-18] MED LIST changes: +DIATRIZOATE MEGL/DIATRIZOA SOD 30 ML BTL PO ONE; -FENTANYL CITRATE/PF 100MCG/2 ML INJ ONE; -GLUCAGON FOR INJ 1 MG VIAL ONE; -INSULIN REGULAR, HUMAN 100 UNIT/1 ML 3ML VIAL ONE; +IOPAMIDOL 370 MG/ML 200 ML INFUS..BTL INJ ONE; -KETAMINE HCL INJ 50 MG/ML 10 ML VIAL ONE; -MIDAZOLAM HCL 5MG/ML 2ML VIAL ONE; +PANTOPRAZOLE SO40 MG PO; -PROPOFOL IV EMULSION 10 MG/ML 50 ML VIAL ONE; +SODIUM CHLORIDE 0.9% 50ML 50 ML ONE
[2018-10-18 16:15] LABS: BLOOD UREA NITROGEN 12 mg/dL (7-26); BUN/CREATININE RATIO 15 (6-25); CREATININE, SERUM 0.81 mg/dL (0.57-1.11); EST GLOMERULAR FILTRATION RATE > 60 ML/MIN (60-)
--- NOTE | 2018-10-18 17:19 | Diagnostic Imaging Report ---
EXAM: CT Abdomen and Pelvis WITH intravenous contrast INDICATION: Rectal mass COMPARISON: None. TECHNIQUE: Abdomen and pelvis were scanned utilizing a multidetector helical scanner from the lung base to the pubic symphysis after administration of IV contrast. Coronal and sagittal reformations were obtained. Routine protocol was performed. Scan was performed when during portal venous phase. IV CONTRAST: 100mL of Isovue 370 ORAL CONTRAST: Gastrografin COMPLICATIONS: None RADIATION DOSE: Total DLP: 564.6 mGy*cm Dose modulation, iterative reconstruction, and/or weight based adjustment of the mA/kV was utilized to reduce the radiation dose to as low as reasonably achievable. FINDINGS: LOWER THORAX: Minimal bibasilar dependent subsegmental atelectasis. No focal consolidation. HEPATOBILIARY: Subtle hyperdense focus in segment 5 of the liver (series 2 image 30) is incompletely evaluated but has the appearance of focal fat. No other focal liver lesions identified. No biliary ductal dilatation. Status post cholecystectomy. SPLEEN: No splenomegaly. PANCREAS: No focal masses or ductal dilatation. ADRENALS: Bilateral left greater than right adrenal gland thickening without discrete nodule. KIDNEYS/URETERS: No hydronephrosis, stones, or solid mass lesions. PELVIC ORGANS/BLADDER: Unremarkable. PERITONEUM / RETROPERITONEUM: No free air or fluid. LYMPH NODES: No lymphadenopathy. VESSELS: Atherosclerotic calcifications of the abdominal aorta and major branches. GI TRACT: No distention or wall thickening. BONES AND SOFT TISSUES: No rectal soft tissue mass or wall thickening identified on this study. Otherwise, no abnormal wall thickening or bowel distention elsewhere in the bowel. Normal appendix. Colonic diverticulosis with no CT evidence of diverticulitis. IMPRESSION: No CT evidence of rectal soft tissue mass or wall thickening. If not already performed, endoscopic evaluation may be helpful for further delineation. Signed by: Fede Pandey MD on 10/18/2018 5:16 PM
== END ==
LOC: CT 15:19
PROVIDERS: ATTEND Internal Medicine Gastroenterology
DX: K62.9 Disease of anus and rectum, unspecified (principal)
CPT/HCPCS: 36415; 74177; 82565; 84520; Q9967

== ENCOUNTER → 2018-10-31 | Day surgery (SDC) | payer OTHER ==
[2018-10-28 09:23] LABS: BASOPHILS % 0.6 % (0.0-1.0); EOSINOPHILS # (AUTO) 0.1 (0.0-0.4); EOSINOPHILS % 1.1 % (0.0-6.0); HEMATOCRIT 41.7 % (34.2-44.1); HEMOGLOBIN 13.4 g/dL (12.0-16.0); LYMPHOCYTES # (AUTO) 2.6 (1.0-3.2); LYMPHOCYTES % 36.9 % (18.0-39.1); MEAN CORPUSCULAR HEMOGLOBIN 26.9 pg (28-32); MEAN CORPUSCULAR HGB CONC 32.1 g/dL (31-35); MEAN CORPUSCULAR VOLUME 83.6 fL (81-99); MONOCYTES # (AUTO) 0.5 (0.2-0.8); MONOCYTES % 6.8 % (4.4-11.3); NEUTROPHILS # (AUTO) 3.9 (2.1-6.9); NEUTROPHILS % 54.5 % (38.7-80.0); PLATELET COUNT 264 x10e3/uL (140-360); RED BLOOD COUNT 4.99 x10e6/uL (3.6-5.1); RED CELL DISTRIBUTION WIDTH 14.6 % (11.7-14.4)
--- NOTE | 2018-10-28 09:25 | Diagnostic Imaging Report ---
EXAMINATION: CHEST 2 VIEWS INDICATION: Pre-operative COMPARISON: None FINDINGS: LINES/TUBES:None LUNGS:The lungs are well-inflated. No focal consolidation or pulmonary edema. PLEURA:No pleural effusion or pneumothorax. MEDIASTINUM:The cardiomediastinal silhouette appears normal in size and shape. Atherosclerotic calcifications of the thoracic aorta. BONES/SOFT TISSUES:No acute osseous injury. ABDOMEN:No free air under the diaphragm. IMPRESSION: No focal pneumonia or pulmonary edema. Signed by: Fede Pandey MD on 10/28/2018 9:22 AM
[2018-10-28 09:41] LABS: ANION GAP 17.2 mmol/L (8-16); BLOOD UREA NITROGEN 12 mg/dL (7-26); BUN/CREATININE RATIO 17 (6-25); CALCIUM 9.2 mg/dL (8.4-10.2); CARBON DIOXIDE 22 mmol/L (22-29); CHLORIDE 103 mmol/L (98-107); CREATININE, SERUM 0.71 mg/dL (0.57-1.11); EST GLOMERULAR FILTRATION RATE > 60 ML/MIN (60-); GLUCOSE 211 mg/dL (74-118); POTASSIUM 4.2 mmol/L (3.5-5.1); SODIUM 138 mmol/L (136-145)
[~2018-10-31] MED LIST changes: +BUPIVACAINE 0.25%/EPI 30ML SDV INJ ONE; +DEXAMETHASONE SOD PHOS INJ 4 MG/ML VIAL ONE; -DIATRIZOATE MEGL/DIATRIZOA SOD 30 ML BTL PO ONE; +FENTANYL CITRATE/PF 100MCG/2 ML INJ ONE; +INSULIN REGULAR, HUMAN 100 UNIT/1 ML 3ML VIAL ONE; -IOPAMIDOL 370 MG/ML 200 ML INFUS..BTL INJ ONE; +LEVOFLOXACIN 500MG/D5W 100ML 100 ML IV ONE; +LIDOCAINE HCL 1% LOCAL INJ 20 ML VIAL ONE; +LIDOCAINE HCL 2% 30 ML TUBE ONE; +LIDOCAINE HCL 2% LOCAL INJ 5 ML SDV VIAL INJ ONE; +LIDOCAINE JELLY 2% 10ML URO-JET ONE; +MIDAZOLAM HCL 2 MG/2 ML VIAL ONE; +ONDANSETRON HCL INJ 2MG/ML 2ML 2 MG/ML VIAL ONE; +PHENYLEPHRINE HCL 1% 10 MG/ML VIAL ONE; +PROMETHAZINE HCL (IM) 25 MG/ML VIAL ONE; +PROPOFOL IV EMULSION 10 MG/ML 20 ML VIAL ONE; +SEVOFLURANE INHAL SOLN 250 ML PEN BTL ONE; -SODIUM CHLORIDE 0.9% 50ML 50 ML ONE
--- NOTE | 2018-10-31 07:05 | NUR ---
SPIRITUAL CARE - Pre-Surgery Assessment: Pt in bed. Pt's at bedside. Pt reported supportive attention from family and friends. Intervention: I provided pastoral presence, hospitality, and sympathetic listening. I acquainted pt with availability of metal moulder while hospitalized. Outcome: Pt expressed appreciation for visit. No need for follow up indicated at this time. [facility]ual [facility] Department O: [phone] Pager: [phone] ([phone] number calling from)
[2018-10-31 10:56] VITALS: BP 164/69
--- NOTE | 2018-10-31 16:49 | Operative Report ---
DATE OF PROCEDURE: 10/31/2018 SURGEON: Samuel Sullivan MD PREOPERATIVE DIAGNOSIS: Rectal tumor. POSTOPERATIVE DIAGNOSIS: Rectal tumor. OPERATION PERFORMED: Transanal full-thickness resection of rectal tumor with partial proctectomy. CUSTOMER EXPERIENCE RETAIL CLERK: BILLY Dowell. ANESTHESIA: General. COMPLICATIONS: None. ESTIMATED BLOOD LOSS: Minimal. DESCRIPTION OF PROCEDURE: With the patient lying in bed in the lithotomy position under good general anesthesia, the perineum was prepped with Betadine solution and draped in the usual manner. A standard anorectal block was then performed with 0.25% Marcaine and 1% Xylocaine with epinephrine. The anus was then dilated and examination revealed the presence of a lesion that was probably about 2.5 to 3 cm in size in the anterior aspect between the 10 o'clock and 12 o'clock position, roughly about a cm or 2 cm from the anal verge at the dentate line. At this point, we went ahead and put 0 chromic stitch above and below the lesion and this was tied to itself. The lesion was then in a full thickness resected sharply and sent for pathological examination. Hemostasis was ascertained and the defect was then closed with a running suture of the same 0 chromic in both directions giving us a two-layer closure of the defect. Hemostasis was ascertained. Gelfoam pack was placed. A dressing was applied. The sponge, lap, and needle count were correct. The patient tolerated the procedure well and returned to the recovery room in stable condition. Samuel Sullivan MD JLR/MODL /[id number]
== END | disposition home or self-care (01) ==
LOC: OR 05:00
PROVIDERS: ATTEND Surgery
DX: D12.9 Benign neoplasm of anus and anal canal (principal); I10 Essential (primary) hypertension; E11.9 Type 2 diabetes mellitus without complications; Z79.84 Long term (current) use of oral hypoglycemic drugs; Z01.810 Encounter for preprocedural cardiovascular examination; Z01.812 Encounter for preprocedural laboratory examination; Z01.818 Encounter for other preprocedural examination; Z88.0 Allergy status to penicillin
CPT/HCPCS: 36415 ×2; 45171; 71046; 80048; 82948; 85025; 88305; 93005; J1100; J1956; J2001 ×2; J2250; J2370; J2405; J2550; J2704; J3010; J1817

== ENCOUNTER 2021-12-30 10:14 | Observation (INO) | payer BC, OTHER ==
[2021-12-26 14:26] LABS: BASOPHILS # (AUTO) 0.1 (0.0-0.1); BASOPHILS % 0.8 % (0.0-1.0); EOSINOPHILS # (AUTO) 0.1 (0.0-0.4); EOSINOPHILS % 1.6 % (0.0-6.0); HEMOGLOBIN 15.4 g/dL (12.0-16.0); LYMPHOCYTES # (AUTO) 3.6 (1.0-3.2); MEAN CORPUSCULAR HEMOGLOBIN 30.7 pg (28-32); MEAN CORPUSCULAR HGB CONC 32.8 g/dL (31-35); MEAN CORPUSCULAR VOLUME 93.6 fL (81-99); MONOCYTES # (AUTO) 0.6 (0.2-0.8); MONOCYTES % 8.5 % (4.4-11.3); NEUTROPHILS # (AUTO) 3.1 (2.1-6.9); NEUTROPHILS % 40.8 % (38.7-80.0); PLATELET COUNT 263 x10e3/uL (140-360); RED BLOOD COUNT 5.02 x10e6/uL (3.6-5.1); RED CELL DISTRIBUTION WIDTH 12.2 % (11.7-14.4)
[2021-12-26 14:44] LABS: ALANINE AMINOTRANSFERASE 18 IU/L (0-55); ALBUMIN 3.9 g/dL (3.5-5.0); ALBUMIN/GLOBULIN RATIO 1.1 (0.8-2.0); ALKALINE PHOSPHATASE 81 IU/L (40-150); ANION GAP 15.1 mmol/L (8-16); BLOOD UREA NITROGEN 16 mg/dL (7-26); BUN/CREATININE RATIO 24 (6-25); CALCIUM 9.6 mg/dL (8.4-10.2); CARBON DIOXIDE 26 mmol/L (22-29); CHLORIDE 104 mmol/L (98-107); CHOLESTEROL 136 MD/DL (0-199); CREATININE, SERUM 0.68 mg/dL (0.57-1.11); GLUCOSE 156 mg/dL (74-118); HDL CHOLESTEROL 46 MG/DL (40-60); LDL CHOLESTEROL 70 MG/DL (60-130); POTASSIUM 4.1 mmol/L (3.5-5.1); SODIUM 141 mmol/L (136-145); TRIGLYCERIDES 98 MG/DL (0-149)
[2021-12-30] VITALS (16 sets, daily range): BP systolic 118–149; BP diastolic 55–79
[~2021-12-30] VITALS: Ht 165.1 cm; Wt 68.0 kg
[~2021-12-30 10:14] MED LIST changes: -BUPIVACAINE 0.25%/EPI 30ML SDV INJ ONE; -DEXAMETHASONE SOD PHOS INJ 4 MG/ML VIAL ONE; -FENTANYL CITRATE/PF 100MCG/2 ML INJ ONE; -INSULIN REGULAR, HUMAN 100 UNIT/1 ML 3ML VIAL ONE; -LEVOFLOXACIN 500MG/D5W 100ML 100 ML IV ONE; -LIDOCAINE HCL 1% LOCAL INJ 20 ML VIAL ONE; -LIDOCAINE HCL 2% 30 ML TUBE ONE; -LIDOCAINE HCL 2% LOCAL INJ 5 ML SDV VIAL INJ ONE; -LIDOCAINE JELLY 2% 10ML URO-JET ONE; -MIDAZOLAM HCL 2 MG/2 ML VIAL ONE; -ONDANSETRON HCL INJ 2MG/ML 2ML 2 MG/ML VIAL ONE; -PHENYLEPHRINE HCL 1% 10 MG/ML VIAL ONE; -PROMETHAZINE HCL (IM) 25 MG/ML VIAL ONE; -PROPOFOL IV EMULSION 10 MG/ML 20 ML VIAL ONE; -SEVOFLURANE INHAL SOLN 250 ML PEN BTL ONE
[2021-12-30] MEDS ORDERED: ALPRAZOLAM 0.5 MG TAB ONE (11:17)
[2021-12-30] MEDS ORDERED: DIPHENHYDRAMINE HCL 25 MG CAP ONE (11:18)
[2021-12-30] MEDS ORDERED: SODIUM CHLORIDE 0.9% 1000ML 0 ML ONE (11:18)
[2021-12-30] MEDS ORDERED: PLAVIX75 MG PO (11:29)
[2021-12-30] MEDS ORDERED: LOSARTAN-HCTZ1 EACH (11:29)
[2021-12-30] MEDS ORDERED: OZEMPIC0.25 MG/0. SC (11:29)
[2021-12-30] MEDS ORDERED: TRESIBA100 UNIT/1 (11:29)
[2021-12-30] MEDS ORDERED: ASPIRIN81 MG PO (11:29)
[2021-12-30] MEDS ORDERED: HEPARIN SOD (PORCINE) 1000 UNIT/ML 30ML ONE (12:53)
[2021-12-30] MEDS ORDERED: IOPAMIDOL 370 MG/ML 100 ML INFUS..BTL INJ ONE (12:53)
[2021-12-30] MEDS ORDERED: HEPARIN SOD/SOD CHLORIDE 2,000 ML ONE (12:53)
[2021-12-30] MEDS ORDERED: SODIUM CHLORIDE 0.9% 1000ML 1,000 ML ONE (12:54)
[2021-12-30] MEDS ORDERED: NITROGLYCERIN/D5W 200 MCG/ML 250 ML ONE (12:54)
[2021-12-30] MEDS ORDERED: IOPAMIDOL 300MG/ML 100 ML INFUS..BTL IV ONE (12:55)
[2021-12-30] MEDS ORDERED: LIDOCAINE 1% 10 ML MULTIDOSE VIAL IJ ONE (13:01)
[2021-12-30] MEDS ORDERED: VERAPAMIL HCL 2.5 MG/ML 2 ML VIAL ONE ×2 (13:01→13:42)
[2021-12-30] MEDS ORDERED: MIDAZOLAM HCL 2 MG/2 ML VIAL ONE ×3 (13:02→14:04)
[2021-12-30] MEDS ORDERED: FENTANYL CITRATE/PF 100MCG/2 ML INJ ONE ×2 (13:04→14:04)
[2021-12-30] MEDS ORDERED: BIVALRIUDIN 250 MG/VIAL VIAL IV ONE (13:10)
[2021-12-30] MEDS ORDERED: PRASUGREL 10 MG TAB ONE (14:17)
[2021-12-30] MEDS ORDERED: ASPIRIN 325 MG TAB ONE (14:17)
[2021-12-30] MEDS ORDERED: PROTAMINE SULFATE 10 MG/ML 5 ML VIAL ONE (14:53)
[2021-12-30] MEDS ORDERED: Morphine 4mg INJECTION 4 MG/ML INJ IV PRN (18:45)
[2021-12-30] MEDS ORDERED: HYDRALAZINE HCL 20 MG/ML VIAL IV PRN (18:45)
[2021-12-30] MEDS ORDERED: SODIUM CHLORIDE 0.9% 1000ML 1,000 ML IV SCH (18:45)
== END 2021-12-30 22:37 | disposition home or self-care (01) ==
LOC: CATH LAB 10:14 → MED/SURG3 18:52
PROVIDERS: ADMIT Internal Medicine Interventional Cardiology; ATTEND Internal Medicine Interventional Cardiology
DX: E11.51 Type 2 diabetes mellitus with diabetic peripheral angiopathy without gangrene (principal); I25.118 Atherosclerotic heart disease of native coronary artery with other forms of angina pectoris; Z72.0 Tobacco use; I10 Essential (primary) hypertension; Z79.82 Long term (current) use of aspirin; Z79.4 Long term (current) use of insulin; E78.00 Pure hypercholesterolemia, unspecified; Z01.812 Encounter for preprocedural laboratory examination; Z20.822 Contact with and (suspected) exposure to COVID-19
CPT/HCPCS: 0223U; 36247; 36415 ×2; 37225; 80053; 80061; 82948; 85025; C1724; C1725 ×2; C1769 ×2; C1887; G0378; J1644; J2250; J2720; J3010; J7030; Q9967 ×2; 37224; 75710; 99152; 99153; J0583